=== PATIENT | male | born 1985 | race Caucasian/White ===

== ENCOUNTER 2023-11-28 15:31 | Emergency (ER) | payer OTHER, SELFPAY ==
[2023-11-28 15:38] VITALS: BP 156/96
[2023-11-28 17:30] VITALS: BP 142/71
--- NOTE | 2023-11-28 17:36 | ED.GENMED ---
History of Present Illness
General
Chief Complaint: Back Pain
Source: patient
Exam Limitations: none
Time Seen by Provider: 11/28/23 17:20
Nursing documentation reviewed up to this point in time: agreed with
History of Present Illness
History of Present Illness:
Patient to ED wt complaint of lower back pain. States he reached for somethng and felt pain in lower back. Taking ibuprofen without relief. Pain radiates to bilateral buttocks intermittently. Denies any bowel or bladder symptoms. No weakness
in extremities, no saddle paresthesia. Brought self to ED for eval. No fever/chills, recent illness.
Past History
Past History
ED Past Medical History: NIDDM
ED Past Surgical History: None
Patient has exhibited threatening behavior?: No
Social History
Tobacco: Smoker
Alcohol: Occasional
Drug: None
Living: with family
Employment: Employed
Review of Systems
Review of Systems
Allergies reviewed?: Yes
All Other Systems: ROS reviewed and negative except as documented in HPI and ROS
Constitutional: Reports no symptoms
EENT: Reports no symptoms
Respiratory: Reports no symptoms
Cardiac: Reports no symptoms
ABD/GI: Reports no symptoms
: Reports no symptoms
Musculoskeletal: Reports back pain (low back pain)
Skin: Reports no symptoms
Neurological: Reports no symptoms
Psychiatric: Reports no symptoms
Phy Exam
General Physical Exam
General Presentation: well appearing and no apparent distress
General age: appears stated age
General Skin: warm and dry
General Habitus: normal
Musculoskeletal Exam
Musculoskeletal Exam: back pain (low back pain radiating to buttocks.)
Skin Exam
Skin Exam: normal color, warm/dry and no rash
Psychiatric Exam
Psychiatric Exam: normal mood/affect
Course
Orders/Labs/Results
Orders:
Orders
11/28/23 17:35
Lumbar Spine Complete, 4 View [CR Lumbar Spine Comp Min 4 Vw*] Urgent
Comment:
Reason For Exam: pain
Vital Signs
Initial and Last Documented VS:
Initial Vital Signs
Temp Pulse Resp BP Pulse Ox
98.4 F 77 18 156/96 95
11/28/23 15:38 11/28/23 15:38 11/28/23 15:38 11/28/23 15:38 11/28/23 15:38
Last Documented Vital Signs
Temp Pulse Resp BP Pulse Ox
98.4 F 85 20 143/82 99
11/28/23 15:38 11/28/23 19:14 11/28/23 19:14 11/28/23 19:14 11/28/23 17:30
*Radiology
Radiology exam reviewed: radiology read reviewed
*Pulse Oximetry
Patient hypoxic: no
*Critical Care Note
Total Time (30-74mins, 75-104mins- exclusive of procedures): Not Applicable
ED Attending Note
-
Portions of this chart may have been created with voice recognition software.� Occasional wrong word or��sound alike� substitutions may have occurred due to the inherent limitations of voice recognition software.
Discharge Plan
Departure
Patient Disposition: Home (Routine Discharge)
Date of Disposition: 11/28/23
Time of Disposition: 18:58
Patient with high blood pressure during this ER visit?: No
Condition: Good
Covid-19: Not Applicable
Discharge Problem:
Back pain
Instructions: Low Back Pain (DC), Ibuprofen
Prescriptions:
New
oxycodone-acetaminophen [Percocet] 5-325 mg tablet
1 tab PO TID PRN (Reason: Pain) Qty: 10 0RF
No Action
tamsulosin [Flomax] 0.4 mg capsule
0.4 mg PO DAILY Qty: 7 0RF
ondansetron HCl 4 mg tablet
4 mg PO TID Qty: 7 0RF
oxycodone-acetaminophen [Percocet] 5-325 mg tablet
1 tab PO Q8H PRN (Reason: pain) Qty: 17 0RF
Referrals:
Zechariah Rios, DO [Family Provider] - Follow up in 2-3 days
Interventions
Interventions:
*Risk Screen - Suicide Last Done: 11/28/23 18:00
*General Assessment Last Done: 11/28/23 18:00
*Neglect/Abuse Screening Last Done: 11/28/23 18:00
ED- Fall Risk Assessment Last Done: 11/28/23 19:26
*ED COVID-19 Vaccine History Last Done: 11/28/23 19:26
*Nursing Disposition Last Done: 11/28/23 19:26
ED-Musculoskeletal Assessment Last Done: 11/28/23 18:00
Discharge Date and Time
Discharge Date/Time: 11/28/23 19:29
Print Language: WOLOF
Musculoskeletal Injury Exam
Musculoskeletal Injury Exam
Bilateral Lower Back:
Pain with Movement?: Moderate
Tender to palpation?: Moderate
Soft tissue swelling?: None
External deformity and angulation?: None
Joint effusion?: None
Contusion?: None
Hematoma-local bleeding into tissue?: None
Strain- Sprain- Tear (Connective tissue injury)?: Moderate
Crepitus with movement?: No
Joint instability?: No
Malalignment/deformity?: No
Range of motion: Limited (pain, limited forward bend)
Distal skin color and temperature: normal-warm & good color
Capillary Refill: normal
Normal distal neurovascular exam?: Yes
[2023-11-28 19:14] VITALS: BP 143/82
== END 2023-11-28 19:29 | disposition home or self-care (01) ==
LOC: EMR 15:31
PROVIDERS: EMERGENCY PHYSICIAN Emergency Medicine; FAMILY PHYSICIAN Internal Medicine
DX: M54.50 Low back pain, unspecified (principal); F17.200 Nicotine dependence, unspecified, uncomplicated
CPT/HCPCS: 99283; 72110

== ENCOUNTER 2024-02-08 12:33 | Emergency (ER) | payer OTHER, SELFPAY ==
[2024-02-08 12:34] VITALS: BP 182/97
[2024-02-08 13:38] VITALS: BMI 52.5
[2024-02-08 13:39] VITALS: BP 128/83; BP 139/89; BP 142/86; PULSE 102; PULSE 93
[2024-02-08 13:42] LABS: % Basophils 0.6 % (0-2); % Eosinophils 3.7 % (0-6); % Immature Granulocytes 0.4 % (0-0.5); % Lymphocytes 28.3 % (20.5-51.1); % Monocytes 6.8 % (1.7-9.3); % Neutrophils 60.2 % (42.2-75.2); Absolute Basophils 0.1 10^3/uL (0-0.2); Absolute Eosinophils 0.3 10^3/uL (0-0.7); Absolute Lymphocytes 2.3 10^3/uL (1.2-3.4); Absolute Monocytes 0.6 10^3/uL (0.1-0.6); Absolute Neutrophils 4.9 10^3/uL (1.4-6.5); Hematocrit 41.2 % (39.0-52.0); Hemoglobin 13.7 g/dL (13.0-18.0); Mean Corp Hgb Conc. 33.3 g/dL (33.0-37.0); Mean Corpuscular Hgb 26.5 pg (27.0-31.0); Mean Corpuscular Volume 79.7 fL (80.0-94.0); Mean Platelet Volume 9.3 fL (7.4-10.4); Nucleated Red Blood Cells % 0 % (-); Platelet Count 234 10^3/uL (130-400); Red Blood Cell Count 5.17 10^6/uL (4.70-6.10); White Blood Cell Count 8.1 10^3/uL (4.8-10.8)
--- NOTE | 2024-02-08 13:42 | ED.GENMED ---
History of Present Illness
General
Chief Complaint: Fatigue
Source: patient
Exam Limitations: none
Time Seen by Provider: 02/08/24 13:00
Nursing documentation reviewed up to this point in time: agreed with
History of Present Illness
History of Present Illness:
pt is a 38 y/o M with h/o NIDDM on ozempic for few mo
here with feeling more tired than usual, starting yesterday
he also had head cold, congestion, cough, maybe low grade temp but didn't take temperature
syas he went to work and was standing and felt lightheadedness with tingling in his hands (both) and face(both)
it reseolved when he sat down'
neve rhad headache, neck pain, cp, sob, paptiations
has not had GI symptoms
woke up this mornign and felt ok until he went to go tot he store, and while standign got the same symptoms
which is what brought him here
no bp meds
denies headache, vision changes, weakness in arms or legs, confusion, neck pain, cp, sob, vomiting/diarrhea
vaccinated for covid
Past History
Past History
ED Past Medical History: NIDDM
ED Past Surgical History: None
Patient has exhibited threatening behavior?: No
Social History
Tobacco: Smoker
Alcohol: Occasional
Drug: None
Living: with family
Employment: Employed
Phy Exam
Physical Exam
Physical Exam:
GENERAL: Alert , in no apparent distress
EYE: pupils equal and reactive
NECK: Supple
ENT: b/l TM s clear, pharynx not erythematous but no tonsillar hypertrophy or exudates
CARDIAC: Regular rate and rhythm, no edema
LUNGS: Clear breath sounds bilaterally, no acute respiratory distress, no wheezes/rales/rhonchi, occ cough
ABDOMEN: Soft, without focal tenderness, no r/g, no cvat, normal bowel sounds
NEUROLOGICAL: Alert and oriented, no focal neuro deficits, cn intact, sensantion intact, strength intact
SKIN: Warm and dry, skin intact.
MUSCULOSKELETAL: No edema, well perfused.
PSYCH: Normal and appropriate interaction.
Course
Orders/Labs/Results
Orders:
Orders
02/08/24 12:37
EKG [Electrocardiogram (*1)] Urgent
Reason for Study: Fatigue / Weakness
02/08/24 12:38
EKG- Treatment ONCE
02/08/24 13:09
Orthostatic VS- Treatment ONCE
02/08/24 13:17
COVID-19 Antigen Urgent
Source: Nasal Swab
Complete Blood Count/With Diff Urgent
Comprehensive Metabolic Panel Urgent
Magnesium Urgent
Troponin I Urgent
Urinalysis Reflex To Culture Urgent
Date Specimen was Collected: 02/08/24
Time Specimen was Collected: 13:13
02/08/24 14:43
0.9% Sodium Chloride 500 ml [Nss] 500 ml IV BOLUS
CR Chest - 2 Views Urgent
Comment:
Reason For Exam: near syncope, cough
02/08/24 15:29
Acetaminophen [Tylenol] 650 mg PO NOW STA
Abnormal Lab Results
02/08/24
13:17
MCV 79.7 L fL
(80.0-94.0)
MCH 26.5 L pg
(27.0-31.0)
Glucose 203 H mg/dl
(70-99)
Urine Glucose 1+ A
(Negative)
02/08/24 13:17
02/08/24 13:17
Vital Signs
Initial and Last Documented VS:
Initial Vital Signs
Temp Pulse Resp BP Pulse Ox
99.1 F 102 20 182/97 96
02/08/24 12:34 02/08/24 12:34 02/08/24 12:34 02/08/24 12:34 02/08/24 12:34
Last Documented Vital Signs
Temp Pulse Resp BP Pulse Ox
99.1 F 92 23 135/81 97
02/08/24 12:34 02/08/24 15:30 02/08/24 15:30 02/08/24 15:22 02/08/24 15:30
MDM/Problems Addressed
Differential Diagnosis Includes:
viral URI, pna, covid, near syncope, anxiety, orthosataic hypotension
MDM/Problems Addressed:
38 y/o M with brain fog, URI sxs since ysterday as well as episodic lightheadedness with standing yesterday x 1 and today x 1
he feels better now
no chest pain/sob/weakness/headache, vision chagnes, syncope
on exam well appearing
had mild elevation of BP and tachycardia initiallybwhic hresolved
neuro nitact
occ cough
otherwiwse no findigns on exam
ekg sinus rhythm with sinus arrhtyhmia
lytes normal except glc 200
no ketones in urine
wbc normal
trop neg
cxr indep reveiewed and clear
d/w dr. pardo
orthostatics neg now
given ivf
feels safe going home
return precautions.
bp imrpoved
*Critical Care Note
Total Time (30-74mins, 75-104mins- exclusive of procedures): Not Applicable
ED Attending Note
-
Portions of this chart may have been created with voice recognition software.� Occasional wrong word or��sound alike� substitutions may have occurred due to the inherent limitations of voice recognition software.
Discharge Plan
Departure
Patient Disposition: Home (Routine Discharge)
Date of Disposition: 02/08/24
Time of Disposition: 15:29
Patient with high blood pressure during this ER visit?: Yes
Condition: Fair
Covid-19: Not Applicable
Discharge Problem:
Viral URI, Lightheadedness, Paresthesias
Instructions: Dizziness, Nonvertigo, (DC), Upper respiratory infection in adults - Discharge instructions, BLOOD PRESSURE
Prescriptions:
No Action
tamsulosin [Flomax] 0.4 mg capsule
0.4 mg PO DAILY Qty: 7 0RF
ondansetron HCl 4 mg tablet
4 mg PO TID Qty: 7 0RF
oxycodone-acetaminophen [Percocet] 5-325 mg tablet
1 tab PO Q8H PRN (Reason: pain) Qty: 17 0RF
oxycodone-acetaminophen [Percocet] 5-325 mg tablet
1 tab PO TID PRN (Reason: Pain) Qty: 10 0RF
Referrals:
Zechariah Rios, [Family Provider] - Follow up in 2-3 days
Activity Restrictions/Additional Instructions:
Were not entirely sure the cause of your symptoms but your blood work, chest x-ray and EKG were all reassuring. You may be coming down with a viral infection and having some lightheadedness because of that. Please stay hydrated. Take Tylenol as
needed for fevers. Make sure to avoid getting up too quickly from being in a supine position. Follow-up with your doctor this week or next week. Return to the ER for passing out, focal area of weakness or numbness on one side of your body,
headache, blurred vision, chest pain or shortness of breath or any concerns
Interventions
Interventions:
*Risk Screen - Suicide Last Done: 02/08/24 12:34
*General Assessment Last Done: 02/08/24 13:43
*Neglect/Abuse Screening Last Done: 02/08/24 12:34
*Nursing Disposition Last Done: 02/08/24 15:57
Discharge Date and Time
Discharge Date/Time: 02/08/24 15:58
Print Language: SAMOAN
[2024-02-08 14:00] VITALS: BP 143/86
[2024-02-08 14:00] LABS: ALT (SGPT) 33 U/L (0-50); AST (SGOT) 43 U/L (17-59); Albumin 4.1 g/dl (3.5-5.0); Alkaline Phosphatase 79 U/L (38-126); Blood Urea Nitrogen 10 mg/dl (9-20); Calcium 9.4 mg/dl (8.4-10.2); Carbon Dioxide 26 mmol/L (22-30); Chloride 102 mmol/L (98-107); Estimated Creatinine Clearance > 125 ml/min; Glucose 203 mg/dl (70-99); Magnesium 1.9 mg/dl (1.6-2.3); Potassium 4.6 mmol/L (3.5-5.1); Sodium 141 mmol/L (135-145); Total Bilirubin 0.4 mg/dl (0.2-1.3); eGFR > 60.00
[2024-02-08 14:12] LABS: COVID-19 Antigen Negative (Negative)
[2024-02-08 14:15] LABS: Troponin I < 0.012 ng/ml
[2024-02-08 14:24] LABS: Urine Albumin Negative (Neg - Trace); Urine Bilirubin Negative (Negative); Urine Character Clear (Clear); Urine Color Yellow; Urine Glucose 1+ (Negative); Urine Ketone Negative (Negative); Urine Leukocyte Negative (Negative); Urine Nitrite Negative (Negative); Urine Occult Blood Negative (Negative); Urine Urobilinogen Negative (Neg - 1+)
[2024-02-08] MEDS: NSS 500 IV (14:50)
[2024-02-08 15:00] VITALS: BP 145/92
[2024-02-08 15:22] VITALS: BP 135/81
[2024-02-08] MEDS: TYLENOL 650 MG PO (15:38)
== END 2024-02-08 15:58 | disposition home or self-care (01) ==
LOC: EMR 12:33
PROVIDERS: Physician Assistant; EMERGENCY PHYSICIAN Emergency Medicine; FAMILY PHYSICIAN Internal Medicine
DX: J06.9 Acute upper respiratory infection, unspecified (principal); R42 Dizziness and giddiness; R20.2 Paresthesia of skin; E11.9 Type 2 diabetes mellitus without complications
CPT/HCPCS: 99283; 96360; 71046; 80053; 81003; 83735; 84484; 85025; 87811; 93005

== ENCOUNTER 2024-11-02 04:27 | Emergency (ER) | payer OTHER, SELFPAY ==
[2024-11-02 04:32] VITALS: BP 136/92
[2024-11-02 05:17] VITALS: BP 105/62
--- NOTE | 2024-11-02 07:22 | ED.GENMED ---
History of Present Illness
General
Chief Complaint: Musculo-Skeletal Complaint
Source: patient
Exam Limitations: none
Time Seen by Provider: 11/02/24 06:58
History of Present Illness
History of Present Illness:
39yo right hand dominant with a history of type 2 diabetes, obesity, RAMONA on CPAP, and GERD presenting for evaluation of left shoulder pain. 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 He started to notice some
tightness in his chest and shortness of breath around 5 PM. This lasted about 5 to 10 minutes before resolving. About 30 minutes later, he started to notice a sharp pain in his left shoulder. His shoulder pain is worse with movement and lasted
the remainder of his shift. He came to the ED to make sure his shoulder is not broken. He denies any specific injuries. He has no current chest pain.
Past History
Past History
ED Past Medical History: NIDDM
ED Past Surgical History: None
Patient has exhibited threatening behavior?: No
Social History
Tobacco: Smoker
Alcohol: Occasional
Drug: None
Living: with family
Employment: Employed
Phy Exam
General Physical Exam
General Presentation: well appearing and no apparent distress
General Skin: warm and dry
General Habitus: normal
General Mental: alert
ENT Exam
ENT Exam: normocephalic
Cardiovascular Exam
Cardiovascular Exam: regular rate/rhythm and no murmur
Pulmonary Exam
Pulmonary Exam: lungs clear, no respiratory distress, no rales, no crackles, no rhonchi and no wheezing
Neurological Exam
Neurological Exam: alert
[place] Coma Scale
Eye Opening: Spontaneous
Verbal Response: Oriented
Motor Response: Obeys Commands
GCS Total Score: 15
Musculoskeletal Exam
Musculoskeletal Exam: other (L shoulder: Normal to inspection. No tenderness to palpation although abduction elicits pain. 2+ radial pulse.)
Skin Exam
Skin Exam: normal color and warm/dry
Psychiatric Exam
Psychiatric Exam: normal mood/affect
Course
Orders/Labs/Results
Orders:
Orders
11/02/24 04:35
Shoulder, Left, Trauma CR [CR Shoulder, Trauma - Left] Urgent
Comment:
Reason For Exam: pain
11/02/24 07:22
Electrocardiogram (*1) Urgent
Reason for Study: Chest Pain
EKG- Treatment ONCE
11/02/24 07:53
11/02/24 07:53
Vital Signs
Initial and Last Documented VS:
Initial Vital Signs
Temp Pulse Resp BP Pulse Ox
98.8 F 75 18 136/92 100
11/02/24 04:32 11/02/24 04:32 11/02/24 04:32 11/02/24 04:32 11/02/24 04:32
Last Documented Vital Signs
Temp Pulse Resp BP Pulse Ox
98.8 F 72 18 156/82 98
11/02/24 04:32 11/02/24 08:22 11/02/24 08:22 11/02/24 08:22 11/02/24 08:22
MDM/Problems Addressed
Differential Diagnosis Includes:
39yoM here with atraumatic L shoulder pain. Had some chest tightness about 30 minutes prior to shoulder pain starting. Pain is worse with movement. No tenderness to palpation of the L shoulder but abduction elicits pain. LUE is neurovascularly
intact. Differential diagnosis includes but is not limited to: musculoskeletal, fracture, ACS
Initial ED plan: X-rays of shoulder obtained prior to arrival which is normal. Will check cardiac labs and EKG.
*Pulse Oximetry
SaO2: 96
Oxygen Mode of Delivery: Room air
Patient hypoxic: no (100%)
*EKG
Interpreted by ED Provider?: Yes
EKG Intrepretation Date: 11/02/24
Heart Rate: 71
Rate: normal
Rhythm: sinus
Ririe: normal axis
Interval: normal interval
QRS Pattern: normal QRS
Ischemia: no ischemia
*Critical Care Note
Total Time (30-74mins, 75-104mins- exclusive of procedures): Not Applicable
Update Note
Update Note:
EKG shows NSR without ischemic changes. I was informed by nursing staff that patient is requesting to leave. On reassessment, he states that his just called and told him that a family member and he must go home. I discussed that we
cannot completely r/o ACS without labs. He understands this and is aware that he is leaving the ED AGAINST MEDICAL ADVICE. He was advised to follow-up closely with his PCP and return to the ED with any new or worsening symptoms including recurrent
chest pain.
ED Attending Note
-
Portions of this chart may have been created with voice recognition software.� Occasional wrong word or��sound alike� substitutions may have occurred due to the inherent limitations of voice recognition software.
Discharge Plan
Departure
Patient Disposition: Against Medical Advice
Date of Disposition: 11/02/24
Time of Disposition: 08:15
Discharge Problem:
Left shoulder pain
Prescriptions:
No Action
tamsulosin [Flomax] 0.4 mg capsule
0.4 mg PO DAILY Qty: 7 0RF
ondansetron HCl 4 mg tablet
4 mg PO TID Qty: 7 0RF
oxycodone-acetaminophen [Percocet] 5-325 mg tablet
1 tab PO Q8H PRN (Reason: pain) Qty: 17 0RF
oxycodone-acetaminophen [Percocet] 5-325 mg tablet
1 tab PO TID PRN (Reason: Pain) Qty: 10 0RF
Referrals:
Zechariah Rios DO [Family Provider, Internal Medicine]
Interventions
Interventions:
*Risk Screen - Suicide Last Done: 11/02/24 04:32
*General Assessment Last Done: 11/02/24 04:32
*Neglect/Abuse Screening Last Done: 11/02/24 04:32
*ED- Fall Risk Assessment Last Done: 11/02/24 05:13
*ED COVID-19 Vaccine History Last Done: 11/02/24 05:13
*Nursing Disposition Last Done: 11/02/24 08:22
ED-Musculoskeletal Assessment Last Done: 11/02/24 05:13
Discharge Date and Time
Discharge Date/Time: 11/02/24 08:10
Print Language: ARMENIAN
--- NOTE | 2024-11-02 08:05 | EDRN ---
Upon entering the patient's room to start IV and do EKG patient is standing fully dressed to leave. Patient states he needs to leave as his needs him at home. Spoke with Ramona SWENSON and she states do the EKG and she will speak with him. Patient
agreed to EKG. States his 's mother just and his is in need of him.
[2024-11-02 08:22] VITALS: BP 156/82
== END 2024-11-02 08:10 | disposition left against medical advice (07) ==
LOC: EMR 04:27
PROVIDERS: EMERGENCY PHYSICIAN Emergency Medicine; FAMILY PHYSICIAN Internal Medicine
DX: M25.512 Pain in left shoulder (principal)
CPT/HCPCS: 99284; 73030; 93005